=== PATIENT | female | born 1990 | race African-American/Black ===

== ENCOUNTER 2021-08-21 19:57 | Inpatient (IN) | payer BC, SELFPAY ==
[2021-08-21] MEDS ORDERED: Sodium Chloride 0.9% 100 ML ONE (20:34)
[2021-08-21] MEDS ORDERED: cefTRIAXone\\ROCEPHIN 1 GM VIAL ONE (20:34)
[2021-08-21 20:58] LABS: Hemoglobin 14.5 g/dL (12.0-16.0); Mean Corpuscular HGB CONC 33.7 g/dL (32.0-36.0); Mean Corpuscular Hemoglobin 28.6 pg (27.0-31.0); Mean Corpuscular Volume 84.8 fL (78.0-98.0); Mean Platelet Volume 8.9 fL (7.4-10.4); Platelet Count 154 thou/uL (130-400); RBC Distribution Width 12.7 % (11.5-14.5); Red Blood Cell (RBC) Count 5.08 mill/uL (4.20-5.40); White Blood Cell (WBC) Count 4.7 thou/uL (4.8-10.8)
[2021-08-21 21:10] LABS: ALT (SGPT) 170 U/L (8-55); AST (SGOT) 129 U/L (5-34); Albumin 3.6 g/dL (3.5-5.0); Alkaline Phosphatase 54 U/L (40-110); Anion Gap 16 mmol/L (10-20); BUN (Urea Nitrogen) 7 mg/dL (7.0-18.7); Bilirubin, Total 0.4 mg/dL (0.2-1.2); CK (CPK) 132 U/L (29-168); Calc. Creatinine Clearance 0 mL/min (70-130); Calcium 8.6 mg/dL (7.8-10.44); Carbon Dioxide 22 mmol/L (22-29); Chloride 105 mmol/L (98-107); Globulin 3.4 g/dL (2.4-3.5); Glucose 113 mg/dL (70-105); Potassium 3.6 mmol/L (3.5-5.1); Sodium 139 mmol/L (136-145)
[2021-08-21] MEDS ORDERED: Dexamethasone 10 MG/ML VIAL ONE (21:12)
[2021-08-21 21:13] LABS: Band 3 % (5-11); Lymphocytes 38 % (21-51); MDiff Complete? YES; Monocytes 2 % (0-10); Neutrophil 57 % (42-75); Platelet Morphology Comment Appears Adequate
[2021-08-21] MEDS ORDERED: Azithromycin 500 MG VIAL ONE (21:16)
[2021-08-21 21:35] LABS: SARS-CoV-2 NAA Rapid Test DETECTED (NotDetected)
[2021-08-21] MEDS ORDERED: HYDROcodone/Acetaminophen 5/325 mg Tablet PO PRN (22:11)
[2021-08-21] MEDS ORDERED: HYDROcodone/Acetaminophen 7.5/325 mg Tablet PO PRN (22:11)
[2021-08-21] MEDS ORDERED: Bisacodyl 5 MG TAB PO PRN (22:11)
[2021-08-21] MEDS ORDERED: Ondansetron PF 4 MG/2 ML Vial IVP PRN (22:11)
[2021-08-21] MEDS ORDERED: Acetaminophen 325 MG TAB PO PRN (22:11)
[2021-08-21] MEDS ORDERED: Pharmacy to Dose REMDESIVIR IVPB PRN (22:31)
[2021-08-21] MEDS ORDERED: Zinc Sulfate 220 MG CAP PO SCH (22:45)
[2021-08-21] MEDS ORDERED: Cholecalciferol (Vitamin D3) 400 UNITS TAB PO SCH (22:45)
[2021-08-21] MEDS ORDERED: Ascorbic Acid 500 mg Chewable Tablet PO SCH (22:45)
[2021-08-21] MEDS ORDERED: Enoxaparin Sodium 40 MG/0.4 ML SYRINGE SC SCH (22:45)
[2021-08-22 00:40] VITALS: BMI 33.0
[2021-08-22] MEDS: Senokot S 8.6-50 MG TAB PO PRN (02:12)
[2021-08-22 07:32] LABS: Hemoglobin 14.1 g/dL (12.0-16.0); Mean Corpuscular HGB CONC 33.2 g/dL (32.0-36.0); Mean Corpuscular Hemoglobin 28.5 pg (27.0-31.0); Mean Corpuscular Volume 85.8 fL (78.0-98.0); Platelet Count 177 thou/uL (130-400); RBC Distribution Width 12.8 % (11.5-14.5); Red Blood Cell (RBC) Count 4.95 mill/uL (4.20-5.40); White Blood Cell (WBC) Count 2.9 thou/uL (4.8-10.8)
[2021-08-22 07:39] LABS: ALT (SGPT) 142 U/L (8-55); AST (SGOT) 92 U/L (5-34); Albumin 3.3 g/dL (3.5-5.0); Alkaline Phosphatase 51 U/L (40-110); Anion Gap 11 mmol/L (10-20); BUN (Urea Nitrogen) 6 mg/dL (7.0-18.7); Bilirubin, Total 0.3 mg/dL (0.2-1.2); Calc. Creatinine Clearance 193 mL/min (70-130); Calcium 8.4 mg/dL (7.8-10.44); Carbon Dioxide 25 mmol/L (22-29); Chloride 107 mmol/L (98-107); Globulin 3.2 g/dL (2.4-3.5); Glucose 128 mg/dL (70-105); Potassium 3.7 mmol/L (3.5-5.1); Protein, Total 6.5 g/dL (6.0-8.3); Sodium 139 mmol/L (136-145)
[2021-08-22] MEDS: Cholecalciferol (Vitamin D3) 400 UNITS TAB PO SCH (07:59)
[2021-08-22] MEDS: Ascorbic Acid 500 mg Chewable Tablet PO SCH (08:00)
[2021-08-22] MEDS: Enoxaparin Sodium 40 MG/0.4 ML SYRINGE SC SCH (08:00)
[2021-08-22] MEDS: Zinc Sulfate 220 MG CAP PO SCH (08:00)
[2021-08-22] MEDS: Famotidine/PF 20 mg/2ml Vial SLOW IVP SCH ×2 (08:00→20:58)
[2021-08-22] MEDS: Dexamethasone 10 MG/ML VIAL SLOW IVP SCH ×2 (08:00→20:59)
[2021-08-22 08:14] LABS: Lymphocytes 40 % (21-51); MDiff Complete? YES; Monocytes 12 % (0-10); Neutrophil 48 % (42-75); Platelet Morphology Comment Appears Adequate
[2021-08-22] MEDS ORDERED: cefTRIAXone\\ROCEPHIN 1 GM in Sodium Chloride 0.9% 100 ML IVPB SCH (09:00)
[2021-08-22] MEDS ORDERED: REMDESIVIR 200 MG in Sodium Chloride 0.9% 250 ML 210 ML IV SCH (09:00)
[2021-08-22] MEDS: Benzonatate 100 MG CAP PO PRN (10:11)
[2021-08-22] MEDS: guaiFENesin ER 600 MG TAB PO SCH ×2 (10:11→20:59)
[2021-08-22] MEDS: cefTRIAXone\\ROCEPHIN 2 GM in Sodium Chloride 0.9% 100 ML IVPB SCH (20:58)
[2021-08-22] MEDS: Azithromycin 500 MG in Sodium Chloride 0.9% 250 ML 250 ML IVPB SCH (22:02)
[2021-08-23 07:11] LABS: ALT (SGPT) 123 U/L (8-55); AST (SGOT) 75 U/L (5-34); Albumin 3.2 g/dL (3.5-5.0); Alkaline Phosphatase 45 U/L (40-110); Anion Gap 11 mmol/L (10-20); BUN (Urea Nitrogen) 8 mg/dL (7.0-18.7); Bilirubin, Direct 0.2 mg/dL (0.1-0.3); Bilirubin, Total 0.3 mg/dL (0.2-1.2); CRP (Inflammatory) Less than 0.50 mg/dL (= or < 0.5); Calc. Creatinine Clearance 187 mL/min (70-130); Calcium 8.5 mg/dL (7.8-10.44); Carbon Dioxide 26 mmol/L (22-29); Chloride 108 mmol/L (98-107); Globulin 3.1 g/dL (2.4-3.5); Glucose 132 mg/dL (70-105); Protein, Total 6.3 g/dL (6.0-8.3); Sodium 141 mmol/L (136-145)
[2021-08-23] MEDS: Dexamethasone 10 MG/ML VIAL SLOW IVP SCH ×2 (08:21→19:37)
[2021-08-23] MEDS: guaiFENesin ER 600 MG TAB PO SCH ×2 (08:21→19:37)
[2021-08-23] MEDS: Famotidine/PF 20 mg/2ml Vial SLOW IVP SCH ×2 (08:21→19:37)
[2021-08-23] MEDS: Enoxaparin Sodium 40 MG/0.4 ML SYRINGE SC SCH (08:21)
[2021-08-23] MEDS: Ascorbic Acid 500 mg Chewable Tablet PO SCH (08:21)
[2021-08-23] MEDS: Cholecalciferol (Vitamin D3) 400 UNITS TAB PO SCH (08:21)
[2021-08-23] MEDS: Zinc Sulfate 220 MG CAP PO SCH (08:21)
[2021-08-23] MEDS: REMDESIVIR 100 MG in Sodium Chloride 0.9% 250 ML 230 ML IV SCH (08:22)
[2021-08-23] MEDS: cefTRIAXone\\ROCEPHIN 2 GM in Sodium Chloride 0.9% 100 ML IVPB SCH (19:36)
[2021-08-23] MEDS: Benzonatate 100 MG CAP PO PRN (19:38)
[2021-08-23] MEDS: Azithromycin 500 MG in Sodium Chloride 0.9% 250 ML 250 ML IVPB SCH (21:24)
[2021-08-23] MEDS: Senokot S 8.6-50 MG TAB PO PRN (21:25)
[2021-08-24 06:52] LABS: ALT (SGPT) 106 U/L (8-55); AST (SGOT) 49 U/L (5-34); Albumin 3.1 g/dL (3.5-5.0); Alkaline Phosphatase 43 U/L (40-110); Bilirubin, Direct 0.1 mg/dL (0.1-0.3); Bilirubin, Total 0.2 mg/dL (0.2-1.2)
[2021-08-24] MEDS: Enoxaparin Sodium 40 MG/0.4 ML SYRINGE SC SCH (08:22)
[2021-08-24] MEDS: Cholecalciferol (Vitamin D3) 400 UNITS TAB PO SCH (08:23)
[2021-08-24] MEDS: REMDESIVIR 100 MG in Sodium Chloride 0.9% 250 ML 230 ML IV SCH (08:23)
[2021-08-24] MEDS: Dexamethasone 10 MG/ML VIAL SLOW IVP SCH ×2 (08:23→20:23)
[2021-08-24] MEDS: guaiFENesin ER 600 MG TAB PO SCH ×2 (08:23→20:22)
[2021-08-24] MEDS: Famotidine/PF 20 mg/2ml Vial SLOW IVP SCH ×2 (08:23→20:23)
[2021-08-24] MEDS: Ascorbic Acid 500 mg Chewable Tablet PO SCH (08:23)
[2021-08-24] MEDS: Zinc Sulfate 220 MG CAP PO SCH (08:23)
[2021-08-24] MEDS: Benzonatate 100 MG CAP PO PRN (20:23)
[2021-08-24] MEDS: cefTRIAXone\\ROCEPHIN 2 GM in Sodium Chloride 0.9% 100 ML IVPB SCH (20:23)
[2021-08-24] MEDS: Azithromycin 500 MG in Sodium Chloride 0.9% 250 ML 250 ML IVPB SCH (21:50)
[2021-08-25 06:35] LABS: ALT (SGPT) 99 U/L (8-55); AST (SGOT) 46 U/L (5-34); Albumin 3.1 g/dL (3.5-5.0); Alkaline Phosphatase 41 U/L (40-110); Bilirubin, Direct 0.1 mg/dL (0.1-0.3); Bilirubin, Total 0.2 mg/dL (0.2-1.2)
[2021-08-25] MEDS: guaiFENesin ER 600 MG TAB PO SCH (08:16)
[2021-08-25] MEDS: Ascorbic Acid 500 mg Chewable Tablet PO SCH (08:16)
[2021-08-25] MEDS: Famotidine/PF 20 mg/2ml Vial SLOW IVP SCH (08:16)
[2021-08-25] MEDS: Dexamethasone 10 MG/ML VIAL SLOW IVP SCH (08:16)
[2021-08-25] MEDS: Enoxaparin Sodium 40 MG/0.4 ML SYRINGE SC SCH (08:17)
[2021-08-25] MEDS: Cholecalciferol (Vitamin D3) 400 UNITS TAB PO SCH (08:17)
[2021-08-25] MEDS: Zinc Sulfate 220 MG CAP PO SCH (08:17)
[2021-08-25] MEDS: REMDESIVIR 100 MG in Sodium Chloride 0.9% 250 ML 230 ML IV SCH (08:17)
[2021-08-25 08:36] VITALS: BP 112/77; TEMP 98.1
[2021-08-25] MEDS ORDERED: FLU VACC QS2021-22(6MOS UP)/PF 60 MCG/0.5 ML SYRINGE IM ONE (09:00)
== END 2021-08-25 14:47 | disposition home or self-care (01) | DRG 871 ==
LOC: ERS 19:57 → T4-B 21:12 → INTOOBSV 21:12 → OBSVTOIN 08-22 08:41
PROVIDERS: ADMIT Student in an Organized Health Care Education/Training Program; ATTEND Internal Medicine
PROC: XW033E5 Introduction of Remdesivir Anti-infective into Peripheral Vein, Percutaneous Approach, New Technology Group 5 (ICD-10-PCS; principal; 2021-08-22)
PROC: 8E0ZXY6 Isolation (ICD-10-PCS; 2021-08-22)
PROC: 3E0333Z Introduction of Anti-inflammatory into Peripheral Vein, Percutaneous Approach (ICD-10-PCS; 2021-08-22)
DX: A41.89 Other specified sepsis (principal); U07.1 COVID-19; J12.82 Pneumonia due to coronavirus disease 2019; J96.01 Acute respiratory failure with hypoxia; E66.9 Obesity, unspecified; Z68.33 Body mass index [BMI] 33.0-33.9, adult
CPT/HCPCS: 0240U; 36415; 71045; 80053; 80076; 82550; 84145; 85025; 85379; 86140; 87040; 93005; 94760; 96372; 96375; G0378; J0456; J0696; J1100; J1650; J3490; J7050; S0028